=== PATIENT | male | born 1985 | race Caucasian/White ===

== ENCOUNTER 2016-07-28 09:28 | Emergency (ER) | payer OTHER ==
[2016-07-28 09:38] VITALS: BP 125/81; PULSE 76; TEMP 98; BMI 27.7
[2016-07-28] MEDS ORDERED: IBUPROFEN 400 MG TABLET (FP) PO ONE ×2 (10:03→10:06)
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
== END 2016-07-28 10:16 | disposition home or self-care (01) ==
LOC: JERFT 09:28
DX: M54.5 Low back pain (principal); X58.XXXA Exposure to other specified factors, initial encounter; Y93.89 Activity, other specified; Y92.9 Unspecified place or not applicable; Y99.0 Civilian activity done for income or pay; Z87.891 Personal history of nicotine dependence
CPT/HCPCS: 99281-25

== ENCOUNTER 2016-09-01 08:44 | Emergency (ER) | payer OTHER ==
[2016-09-01 08:56] VITALS: BP 127/78; PULSE 72; TEMP 97.1; BMI 27.3
[2016-09-01] MEDS ORDERED: ACETAMINOPHEN 500 MG TABLET (FP) PO ONE (09:10)
[2016-09-01] MEDS ORDERED: DIPHTH,PERTUSS(ACELL),TET 0.5 ML DISP.SYRIN IM ONE (09:11)
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
== END 2016-09-01 09:48 | disposition home or self-care (01) ==
LOC: JERFT 08:44
PROC: 0HQGXZZ Repair Left Hand Skin, External Approach (ICD-10-PCS; principal; 2016-09-01)
PROC: 3E0234Z Introduction of Serum, Toxoid and Vaccine into Muscle, Percutaneous Approach (ICD-10-PCS; 2016-09-01)
DX: S61.011A Laceration without foreign body of right thumb without damage to nail, initial encounter (principal); W26.8XXA Contact with other sharp object(s), not elsewhere classified, initial encounter; Y93.89 Activity, other specified; Y92.89 Other specified places as the place of occurrence of the external cause; Y99.0 Civilian activity done for income or pay
CPT/HCPCS: 90715; 99282-25

== ENCOUNTER 2016-10-05 14:29 | Emergency (ER) | payer OTHER ==
[2016-10-05 14:44] VITALS: BP 106/74; PULSE 98; TEMP 98.1; BMI 28.0
[2016-10-05] MEDS ORDERED: IBUPROFEN 600 MG TABLET (FP) PO ONE (15:42)
[2016-10-05] MEDS ORDERED: CYCLOBENZAPRINE HCL 10 MG TABLET (FP) PO ONE (15:42)
[2016-10-05] MEDS ORDERED: CYCLOBENZAPRINE HCL 10 MG TABLET (FP) ONE (15:44)
[2016-10-05] MEDS ORDERED: IBUPROFEN 400 MG TABLET (FP) PO ONE (15:44)
--- NOTE | 2016-10-05 15:48 | PDOC ---
History of Present Illness - General Chief Complaint: Back Pain Stated Complaint: LOWER BACK PAIN Time Seen by Provider: 10/05/16 14:53 History Source: Patient Exam Limitations: No Limitations - History of Present Illness Initial Comments: 10/05/16 15:43 SHEENT here with complaints of lumbar spine and back spasm. Is [place] [employer], while on duty was performing heavy lifting and felt onset of pain that is progressively becoming worse. Denies numbness and tingling to hands or feet, no other injury. Occurred: reports: just prior to arrival, this morning Severity: reports: moderate Pain Location: reports: back Method of Injury: Yes: unknown Associated Symptoms (Fall): denies symptoms Past History - Travel Traveled outside of the country in the last 30 days: No Close contact w/someone who was outside of country & ill: No - Past Medical History Allergies/Adverse Reactions: Allergies Allergy/AdvReac Type Severity Reaction Status Date / Time No Known Allergies Allergy Verified 10/05/16 14:42 Home Medications: Ambulatory Orders Cyclobenzaprine HCl [Flexeril 10 mg] 10 mg PO BID PRN #14 tablet 10/05/16 Thyroid Disease: No - Surgical History Abdominal Surgery: Yes (rt ing hernia) - Immunization History Immunization Up to Date: No - Psycho/Social/Smoking Cessation Hx Anxiety: No Suicidal Ideation: No Smoking History: Never smoked Have you smoked in the past 12 months: No Number of Cigarettes Smoked Daily: 10 If you are a former smoker, when did you quit?: 2014 Information on smoking cessation initiated: No 'Breaking Loose' booklet given: 04/20/13 Hx Alcohol Use: No Drug/Substance Use Hx: No Substance Use Type: Alcohol Review of Systems - Review of Systems Able to Perform ROS?: Yes Is the patient limited [place]ian proficient: Yes Constitutional: Yes: Symptoms Reported, See HPI, Malaise HEENTM: No: Symptoms Reported Respiratory: Yes: See HPI. No: Symptoms reported Musculoskeletal: Yes: Symptoms Reported, See HPI, Muscle Weakness Integumentary: Yes: Symptoms Reported, See HPI All Other Systems: Reviewed and Negative *Physical Exam - Vital Signs Last Vital Signs Temp Pulse Resp BP Pulse Ox 98.1 F 98 H 18 106/74 100 10/05/16 14:43 10/05/16 14:43 10/05/16 14:43 10/05/16 14:43 10/05/16 14:43 - Physical Exam General Appearance: Yes: Nourished, Appropriately Dressed, Apparent Distress HEENT: positive: CATA, Normal ENT Inspection, TMs Normal, Pharynx Normal Neck: positive: Tender, Supple Respiratory/Chest: positive: Lungs Clear, Normal Breath Sounds Cardiovascular: positive: Regular Rate Gastrointestinal/Abdominal: positive: Normal Bowel Sounds, Soft. negative: Tender Musculoskeletal: positive: Normal Inspection, Decreased Range of Motion, Muscle Spasm (palapable to low and mid back/ able to bend at waist/ but is painful. ). negative: CVA Tenderness, Vertebral Tenderness Extremity: positive: Normal Capillary Refill, Normal Inspection, Normal Range of Motion Integumentary: positive: Normal Color, Dry, Warm Neurologic: positive: central sterile tech II-XII NML intact, Fully Oriented, Alert, Normal Mood/ Affect, Normal Response, Motor Strength 5/5 Progress Note - Progress Note Progress Note: Back spasm, will treat with NSAIDs and cyclobenzaprine *DC/Admit/Observation/Transfer Diagnosis at time of Disposition: Low back strain Qualifiers: Encounter type: initial encounter Qualified Code(s): S39.012A - Strain of muscle, fascia and tendon of lower back, initial encounter - Discharge Dispostion Disposition: HOME Condition at time of disposition: Stable Admit: No - Patient Instructions Printed Discharge Instructions: DI for Back Strain or Sprain Additional Instructions: Rest, no heavy lifting or exercise until pain is resolved Hot soaks to neck and low back as often as possible/hot showers or Jacuzzis No massage or therapy until spasm is gone Continue ibuprofen 2-200 mg tablets every 6 hours for the next 3 days then as needed for pain and swelling Cyclobenzaprine 1-10mg every 8 hours as needed for spasm If not significant improvement within 24 hours with medication and rest regime, followup with private physician for change in medications and /or therapy. - Post Discharge Activity Work/School Note: Back to Work
== END 2016-10-05 15:54 | disposition home or self-care (01) ==
LOC: JERFT 14:29
DX: S39.012A Strain of muscle, fascia and tendon of lower back, initial encounter (principal); X58.XXXA Exposure to other specified factors, initial encounter; Y93.89 Activity, other specified; Y92.89 Other specified places as the place of occurrence of the external cause; Y99.0 Civilian activity done for income or pay; Z87.891 Personal history of nicotine dependence
CPT/HCPCS: 99281-25

== ENCOUNTER 2017-06-07 05:09 | Emergency (ER) | payer OTHER ==
[2017-06-07 05:17] VITALS: TEMP 98.3; BMI 26.3
[2017-06-07] MEDS ORDERED: KETOROLAC TROMETHAMINE 60 MG/2 ML VIAL IM ONE (05:21)
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
[2017-06-07] MEDS ORDERED: KETOROLAC TROMETHAMINE 60 MG/2 ML VIAL ONE (05:47)
[2017-06-07 06:30] VITALS: BP 118/86; PULSE 73
== END 2017-06-07 06:30 | disposition home or self-care (01) ==
LOC: JER 05:09
PROC: 3E0233Z Introduction of Anti-inflammatory into Muscle, Percutaneous Approach (ICD-10-PCS; principal; 2017-06-07)
DX: S39.012A Strain of muscle, fascia and tendon of lower back, initial encounter (principal); X08.8XXA Exposure to other specified smoke, fire and flames, initial encounter; Y93.89 Activity, other specified; Y92.89 Other specified places as the place of occurrence of the external cause; Y99.0 Civilian activity done for income or pay
CPT/HCPCS: 73562-TC-LT; 99281-25

== ENCOUNTER 2019-02-11 16:00 | Emergency (ER) | payer OTHER ==
--- NOTE | 2019-02-11 16:07 | PDOC ---
Rapid Medical Evaluation Time Seen by Provider: 02/11/19 16:05 Medical Evaluation: Allergies Allergy/AdvReac Type Severity Reaction Status Date / Time No Known Allergies Allergy Verified 06/07/17 05:15 02/11/19 16:05 HPI: L shoulder pain with radicular symptoms after lifting PE: No gross deficits ORDERS: C-spine and R shoulder x-ray Discharge Disposition - Diagnosis Right shoulder strain - Referrals - Patient Instructions - Post Discharge Activity
[2019-02-11 16:09] VITALS: BP 138/85; PULSE 85; TEMP 98.8; BMI 27.6
[2019-02-11] MEDS ORDERED: KETOROLAC TROMETHAMINE 60 MG/2 ML VIAL IM ONE (16:35)
[2019-02-11] MEDS ORDERED: KETOROLAC TROMETHAMINE 60 MG/2 ML VIAL ONE (16:35)
--- NOTE | 2019-02-11 16:47 | PDOC ---
History of Present Illness - General Chief Complaint: Injury Stated Complaint: RT. SHOUDLER PAIN Time Seen by Provider: 02/11/19 16:05 History Source: Patient - History of Present Illness Occurred: reports: this afternoon Upper Extremity Pain Location: right: shoulder Past History - Past Medical History Allergies/Adverse Reactions: Allergies Allergy/AdvReac Type Severity Reaction Status Date / Time No Known Allergies Allergy Verified 02/11/19 16:09 Home Medications: Ambulatory Orders Cyclobenzaprine HCl [Flexeril 10 mg] 10 mg PO HS PRN #7 tablet 06/07/17 Naproxen 375 mg PO BID #20 tablet 06/07/17 COPD: No Thyroid Disease: No - Surgical History Abdominal Surgery: Yes (rt ing hernia) - Immunization History Immunization Up to Date: No - Suicide/Smoking/Psychosocial Hx Smoking History: Never smoked Have you smoked in the past 12 months: No Number of Cigarettes Smoked Daily: 10 If you are a former smoker, when did you quit?: 2014 'Breaking Loose' booklet given: 04/20/13 Hx Alcohol Use: No Drug/Substance Use Hx: No Substance Use Type: Alcohol Review of Systems - Review of Systems Musculoskeletal: Yes: Joint Pain. No: Joint Swelling Neurological: Yes: Tingling. No: Numbness, Weakness *Physical Exam - Vital Signs Last Vital Signs Temp Pulse Resp BP Pulse Ox 98.8 F 85 18 138/85 98 02/11/19 16:06 02/11/19 16:06 02/11/19 16:06 02/11/19 16:06 02/11/19 16:06 - Physical Exam General Appearance: Yes: Appropriately Dressed, Mild Distress HEENT: positive: Normal Voice Neck: positive: Supple. negative: Tender Respiratory/Chest: negative: Respiratory Distress Extremity: positive: Normal Inspection, Normal Range of Motion. negative: Tender, Swelling Integumentary: positive: Dry, Warm Neurologic: positive: Fully Oriented, Alert, Normal Mood/Affect, Motor Strength 5/5 Medical Decision Making - Medical Decision Making 02/11/19 16:38 33 yo M, no sig hx, here with right shoulder pain. 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 Has had pain to shoulder that radiates to fingers with tingling of finger since. No numbness, UE weakness or neck pain. Has not taking anything for pain see exam Shoulder strain No e/o serious injury -pain control -sling -ortho referral as needed *DC/Admit/Observation/Transfer Diagnosis at time of Disposition: Right shoulder strain Qualifiers: Encounter type: initial encounter Qualified Code(s): S46.911A - Strain of unspecified muscle, fascia and tendon at shoulder and upper arm level, right arm , initial encounter - Discharge Dispostion Disposition: HOME Condition at time of disposition: Good - Referrals Referrals: Sam Cole MD [Staff Physician] - - Patient Instructions Printed Discharge Instructions: DI for Shoulder Sprain Additional Instructions: You most likely sustained a soft tissue injury of her shoulder, which can last from a few days to a week or 2. Take Motrin [id number] every 6 hours as needed for pain and use sling for comfort. If shoulder pain persist after 2 weeks, please follow-up with Dr. Cole of orthopedics - Post Discharge Activity Forms/Work/School Notes: Back to Work
== END 2019-02-11 16:47 | disposition home or self-care (01) ==
LOC: JERFT 16:00
PROC: 3E0233Z Introduction of Anti-inflammatory into Muscle, Percutaneous Approach (ICD-10-PCS; principal; 2019-02-11)
DX: S46.811A Strain of other muscles, fascia and tendons at shoulder and upper arm level, right arm, initial encounter (principal); X50.0XXA Overexertion from strenuous movement or load, initial encounter; Y93.89 Activity, other specified; Y92.89 Other specified places as the place of occurrence of the external cause; Y99.0 Civilian activity done for income or pay
CPT/HCPCS: 99282-25

== ENCOUNTER 2019-11-23 04:02 | Emergency (ER) | payer OTHER ==
[2019-11-23] MEDS ORDERED: KETOROLAC TROMETHAMINE 30 MG/1 ML VIAL IM ONE (04:24)
[2019-11-23 04:33] VITALS: BP 116/81; PULSE 84; TEMP 98.6; BMI 26.2
[2019-11-23] MEDS ORDERED: KETOROLAC TROMETHAMINE 30 MG/1 ML VIAL ONE (04:54)
--- NOTE | 2019-11-23 05:08 | PDOC ---
Attending Attestation - Resident Resident Name: Ed Smart - ED Attending Attestation I have performed the following: I have examined & evaluated the patient, The case was reviewed & discussed with the resident, I agree w/resident's findings & plan - HPI HPI: 11/23/19 23:52 34 yo male no sig medical hx presents to the ED with right and left lower back pain. 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 Pt states he has had pain of similar quality and intensity to prior flares of his back pain, denies weakness/sensory changes into his lower limbs, saddle anesthesia, abdominal pain, midline spine tenderness. Pt ROM normal in all plains - Physicial Exam PE: 11/23/19 23:53 Agree with resident exam. Pt has paraspinal tenderness. No midline tenderness or stepoffs or pain running down the spine. Heart and lungs and abd exam normal HEENT normalNeuro exam normal - Medical Decision Making 11/23/19 23:54 Stable for d/c home with analgesics. Pt ought to follow up with an MRI Discharge - Discharge Information Problems reviewed: Yes Clinical Impression/Diagnosis: Back pain Disposition: HOME - Follow up/Referral - Patient Discharge Instructions Patient Printed Discharge Instructions: DI for Low Back Pain Additional Instructions: Please see your Primary Doctor within the next 48 hours. Take over the counter Motrin as needed for pain. Return to the ER for new or concerning symptoms. Thank you - Post Discharge Activity
--- NOTE | 2019-11-23 05:25 | PDOC ---
History of Present Illness - General Stated Complaint: BACK INJURY/YFD Time Seen by Provider: 11/23/19 04:12 History Source: Patient Exam Limitations: No Limitations - History of Present Illness Initial Comments: 11/23/19 04:50 34 yo male no sig medical hx presents to the ED with R lower back pain. 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 Pt states he has had pain of similar quality and intensity to prior flares of his back pain, denies weakness/sensory changes into his lower limbs, saddle anesthesia, abdominal pain, midline spine tenderness. Pt ROM normal in [place] Past History - Medical History Allergies/Adverse Reactions: Allergies Allergy/AdvReac Type Severity Reaction Status Date / Time No Known Allergies Allergy Verified 02/11/19 16:09 Home Medications: Ambulatory Orders Cyclobenzaprine HCl [Flexeril 10 mg] 10 mg PO HS PRN #7 tablet 06/07/17 Naproxen 375 mg PO BID #20 tablet 06/07/17 COPD: No Thyroid Disease: No - Surgical History Abdominal Surgery: Yes (rt ing hernia) - Immunization History Immunization Up to Date: No - Psycho-Social/Smoking History Smoking History: Never smoked Have you smoked in the past 12 months: No Number of Cigarettes Smoked Daily: 10 If you are a former smoker, when did you quit?: 2014 Information on smoking cessation initiated: No 'Breaking Loose' booklet given: 04/20/13 - Substance Abuse Hx (Audit-C & DAST Scrn) How often the patient has a drink containing alcohol: Monthly or less Number of drinks the patient has on a typical day: 1 or 2 How often the patient has six or more drinks on one occasion: Never Score: In Men: 4 or > Positive; In Women: 3 or > Positive: 1 Screen Result (Pos requires Nsg. Audit-10AR): Negative In the last yr the pt used illegal drug/Rx for NonMed reason: No Score: Yes response is considered Positive: 0 Screen Result (Positive result requires Nsg. DAST-10): Negative Review of Systems - Review of Systems Constitutional: Yes: Symptoms Reported HEENTM: Yes: Symptoms Reported Respiratory: Yes: Symptoms reported Cardiac (ROS): Yes: Symptoms Reported ABD/GI: Yes: Symptoms Reported : Yes: Symptoms Reported Musculoskeletal: Yes: Symptoms Reported Integumentary: Yes: Symptoms Reported Neurological: Yes: Symptoms reported *Physical Exam - Vital Signs Last Vital Signs Temp Pulse Resp BP Pulse Ox 98.6 F 84 20 116/81 94 L 11/23/19 04:30 11/23/19 04:30 11/23/19 04:30 11/23/19 04:30 11/23/19 04:30 - Physical Exam General Appearance: Yes: Nourished, Appropriately Dressed. No: Apparent Distress HEENT: positive: EOMI Neck: positive: Supple. negative: Carotid bruit Respiratory/Chest: positive: Lungs Clear, Normal Breath Sounds. negative: Respiratory Distress, Accessory Muscle Use, Rapid RR, Crackles, Rales, Rhonchi, Stridor, Wheezing Cardiovascular: positive: Regular Rhythm, Regular Rate Vascular Pulses: Dorsalis-Pedis (R): 4+, Doralis-Pedis (L): 4+ Gastrointestinal/Abdominal: positive: Flat, Soft Musculoskeletal: positive: Other (lateral right lower back tenderness to palpation). negative: CVA Tenderness, Vertebral Tenderness Extremity: positive: Normal Capillary Refill, Normal Inspection, Normal Range of Motion Integumentary: positive: Normal Color, Dry, Warm Neurologic: positive: Fully Oriented, Alert, Normal Mood/Affect, Normal Response, Motor Strength 5/5. negative: Sensory Deficit Medical Decision Making - Medical Decision Making 11/23/19 06:12 34 yo male no sig medical hx presents to the ED with R lower back pain. 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 Pt states he has had pain of similar quality and intensity to prior flares of his back pain, denies weakness/sensory changes into his lower limbs, saddle anesthesia, abdominal pain, midline spine tenderness. Pt ROM normal in [place] vitals stable Pt states in the past, toradol injection helped Toradol relieves pts pain and ROM is normal without alarming signs for neuro deficits Pt safe for DC home Discharge - Discharge Information Problems reviewed: Yes Clinical Impression/Diagnosis: Back pain Disposition: HOME - Admission No - Follow up/Referral - Patient Discharge Instructions Patient Printed Discharge Instructions: DI for Low Back Pain Additional Instructions: Please see your Primary Doctor within the next 48 hours. Take over the counter Motrin as needed for pain. Return to the ER for new or concerning symptoms. Thank you - Post Discharge Activity
== END 2019-11-23 05:46 | disposition home or self-care (01) ==
LOC: JER 04:02
PROC: 3E0233Z Introduction of Anti-inflammatory into Muscle, Percutaneous Approach (ICD-10-PCS; principal; 2019-11-23)
DX: M54.9 Dorsalgia, unspecified (principal)
CPT/HCPCS: 99284-25

== ENCOUNTER 2020-04-29 08:54 | Emergency (ER) | payer OTHER ==
[2020-04-29] MEDS ORDERED: KETOROLAC TROMETHAMINE 60 MG/2 ML VIAL IM ONE (09:37)
[2020-04-29] MEDS ORDERED: KETOROLAC TROMETHAMINE 30 MG/1 ML VIAL ONE (09:39)
[2020-04-29 09:46] VITALS: BP 116/80; PULSE 92; TEMP 98.1; BMI 26.7
== END 2020-04-29 10:13 | disposition home or self-care (01) ==
LOC: JER 08:54
PROC: 3E0233Z Introduction of Anti-inflammatory into Muscle, Percutaneous Approach (ICD-10-PCS; principal; 2020-04-29)
DX: M25.561 Pain in right knee (principal)
CPT/HCPCS: 73562-TC-RT-FY; 99284-25

== ENCOUNTER 2020-09-20 10:50 | Emergency (ER) | payer BC, OTHER ==
[2020-09-20] MEDS ORDERED: SODIUM BICARBONATE 8.4% 50 MEQ/50 ML VIAL NR ONE (11:08)
[2020-09-20] MEDS ORDERED: SODIUM BICARBONATE 8.4% 50 MEQ/50 ML VIAL ONE (11:09)
[2020-09-20] MEDS ORDERED: LIDOCAINE HCL 1%, 10 MG/ML (20ML VIAL) ONE (11:11)
[2020-09-20 11:13] VITALS: BP 137/100; PULSE 75; TEMP 99.1; BMI 26.7
[2020-09-20] MEDS ORDERED: LIDOCAINE HCL 1%, 10 MG/ML (50 mL VIAL) SQ ONE (11:18)
== END 2020-09-20 12:17 | disposition home or self-care (01) ==
LOC: FER 10:50
DX: S61.209A Unspecified open wound of unspecified finger without damage to nail, initial encounter (principal)
CPT/HCPCS: 73140-TC-RT-FY; 99284-25

== ENCOUNTER 2021-08-23 12:02 | Emergency (ER) | payer OTHER, BC ==
[2021-08-23 12:22] VITALS: BP 117/80; PULSE 94; TEMP 97.9; BMI 28.0
[2021-08-23] MEDS ORDERED: KETOROLAC TROMETHAMINE 30 MG/1 ML VIAL IM ONE (12:46)
[2021-08-23] MEDS ORDERED: KETOROLAC TROMETHAMINE 30 MG/1 ML VIAL ONE (12:52)
== END 2021-08-23 13:54 | disposition home or self-care (01) ==
LOC: JERFT 12:02
PROC: 3E0233Z Introduction of Anti-inflammatory into Muscle, Percutaneous Approach (ICD-10-PCS; principal; 2021-08-23)
DX: S92.902A Unspecified fracture of left foot, initial encounter for closed fracture (principal); X50.0XXA Overexertion from strenuous movement or load, initial encounter
CPT/HCPCS: 73630-TC-LT; 99284-25

== ENCOUNTER 2022-07-15 15:00 | Emergency (ER) | payer OTHER ==
[2022-07-15 15:08] VITALS: BP 114/72; PULSE 94; RESP 18; TEMP 98.4; BMI 23.1
[2022-07-15] MEDS ORDERED: IBUPROFEN 600 MG TABLET (FP) PO ONE ×2 (15:41→15:42)
== END 2022-07-15 16:07 | disposition home or self-care (01) ==
LOC: JERFT 15:00
DX: S39.012A Strain of muscle, fascia and tendon of lower back, initial encounter (principal); M25.532 Pain in left wrist; X50.0XXA Overexertion from strenuous movement or load, initial encounter; Y99.0 Civilian activity done for income or pay
CPT/HCPCS: 73110-TC-LT-FY; 73130-TC-LT-FY; 99283-25

== ENCOUNTER 2022-09-17 21:10 | Emergency (ER) | payer OTHER ==
[2022-09-17 21:26] VITALS: BMI 23.1
[2022-09-17] MEDS ORDERED: IBUPROFEN 400 MG TABLET (FP) PO ONE ×2 (21:48→21:51)
[2022-09-17 22:42] VITALS: BP 114/70; PULSE 90; RESP 18; TEMP 99.3
== END 2022-09-17 22:54 | disposition home or self-care (01) ==
LOC: JER 21:10
DX: M54.2 Cervicalgia (principal); M54.6 Pain in thoracic spine; R50.9 Fever, unspecified; R05.9 Cough, unspecified; R07.0 Pain in throat; R09.81 Nasal congestion; J02.9 Acute pharyngitis, unspecified; B34.9 Viral infection, unspecified; J10.1 Influenza due to other identified influenza virus with other respiratory manifestations; G89.29 Other chronic pain; W10.8XXA Fall (on) (from) other stairs and steps, initial encounter; Y93.01 Activity, walking, marching and hiking; Z20.822 Contact with and (suspected) exposure to COVID-19
CPT/HCPCS: 0241U-QW; 87651; 99283-25

== ENCOUNTER 2022-11-04 03:46 | Emergency (ER) | payer OTHER ==
[2022-11-04 03:53] VITALS: BP 104/67; PULSE 88; RESP 18; TEMP 98.1; BMI 22.5
[2022-11-04] MEDS ORDERED: LIDOCAINE 5% TOPICAL PATCH TP ONE (04:22)
[2022-11-04] MEDS ORDERED: ACETAMINOPHEN 325 MG TABLET (FP) ONE (04:26)
[2022-11-04] MEDS ORDERED: LIDOCAINE 5% TOPICAL PATCH ONE (04:26)
[2022-11-04] MEDS ORDERED: ACETAMINOPHEN 500 MG TABLET (FP) PO ONE (04:27)
[2022-11-04] MEDS: ACETAMINOPHEN 500 MG TABLET (FP) PO ONE ×2 (04:31→04:38)
[2022-11-04] MEDS ORDERED: LIDOCAINE PATCH REMOVAL MC SCH (22:00)
== END 2022-11-04 05:46 | disposition home or self-care (01) ==
LOC: JER 03:46
DX: S16.1XXA Strain of muscle, fascia and tendon at neck level, initial encounter (principal); R51.9 Headache, unspecified; M54.2 Cervicalgia; R42 Dizziness and giddiness; X01.1XXA Exposure to smoke in uncontrolled fire, not in building or structure, initial encounter; X50.0XXA Overexertion from strenuous movement or load, initial encounter; Y93.89 Activity, other specified; Y92.038 Other place in apartment as the place of occurrence of the external cause
CPT/HCPCS: 99283-25